=== PATIENT | female | born 1940 | race Caucasian/White ===

== ENCOUNTER 2016-09-07 07:54 | Day surgery (SDC) | payer MEDICARE ==
[~2016-09-07] VITALS: Ht 162.6 cm; Wt 61.2 kg
[~2016-09-07 07:54] MED LIST: ASPIRIN81 MG PO; CENTRUM PO; LEVOTHYROXIN50 MCG PO; LOSARTAN POT50 MG PO; LUTEIN PO; PRAVASTATIN SOD20 MG PO; PROAIR HFA IN; VITAMIN E400 UNIT PO; [UNRECOGNIZED DRUG - OTHER] PO
[2016-09-07 10:58] VITALS: BP 100/53
== END 2016-09-07 11:20 | disposition home or self-care (01) ==
LOC: ENDO 07:54
PROVIDERS: ATTEND Surgery
PROC: 0DBP8ZX Excision of Rectum, Via Natural or Artificial Opening Endoscopic, Diagnostic (ICD-10-PCS; principal; 2016-09-07)
DX: Z12.11 Encounter for screening for malignant neoplasm of colon (principal); D12.8 Benign neoplasm of rectum; E78.5 Hyperlipidemia, unspecified; Z86.73 Personal history of transient ischemic attack (TIA), and cerebral infarction without residual deficits; Z85.6 Personal history of leukemia

== ENCOUNTER 2023-03-11 11:47 | Emergency (ER) | payer MEDICARE ==
[2023-03-11] VITALS (7 sets, daily range): BP systolic 156–186; BP diastolic 73–95
[~2023-03-11] VITALS: Ht 162.6 cm; Wt 62.7 kg
[2023-03-11 12:28] LABS: BASO% 0.1 % (0-3); HEMATOCRIT 36.1 % (37.0-47.0); HEMOGLOBIN 11.6 g/dl (12.0-16.0); IMMATURE GRANULOCYTES 0.2 % (0.0-5.0); LYMPH% 8.6 % (15-41); MEAN CELL VOLUME 101.1 fL CALC (80.0-100.0); MEAN CORPUSCULAR HGB 32.5 pG CALC (26.0-32.0); MEAN CORPUSCULAR HGB CONC 32.1 g/dL CAL (32.0-36.0); MONO% 8.6 % (2-13); NEUT# 12.91 thou/uL (2.00-7.15); NEUT% 82.5 % (42-76); RED BLOOD COUNT 3.57 mill/uL (4.20-5.60); RED CELL DISTRI WIDTH 13.8 % (11.5-15.5)
[2023-03-11 12:52] LABS: ALBUMIN 3.7 g/dL (3.2-5.0); ALKALINE PHOSPHATASE 85 u/l (38-126); ANION GAP 13 (6-22 (CALC)); BILIRUBIN, TOTAL 0.4 mg/dL (0.02-1.3); BUN 27 mg/dL (8-23); BUN/CREATININE RATIO 40 (12-20 (CALC)); CARBON DIOXIDE 25 mmol/l (22-30); CHLORIDE 103 mmol/l (95-108); CREATININE 0.7 mg/dL (0.5-1.0); GFR FOR AFR.AMER. > 60 ML/MIN (>=60 (CALC)); GFR OTHER RACES > 60 ML/MIN (>=60 (CALC)); POTASSIUM 3.9 mmol/l (3.5-5.1); SODIUM 138 mmol/l (137-146)
[2023-03-11 12:53] LABS: SGOT/AST 58 u/l (9-36)
[2023-03-11 13:17] LABS: URINE BILIRUBIN - DIPSTICK Negative (NEGATIVE); URINE BLOOD DIPSTICK Trace-intact (NEGATIVE); URINE GLUCOSE - DIPSTICK Negative (NEGATIVE); URINE KETONE Negative (NEGATIVE); URINE NITRITE - DIPSTICK Negative (Negative); URINE PROTEIN - DIPSTICK 30 mg/dL (NEG-TRACE); URINE SPECIFIC GRAVITY 1.015
[2023-03-11 13:21] LABS: URINE COLOR Yellow; URINE EPITHELIAL CELLS MODERATE EPI/hpf (0-FEW); URINE LEUK ESTERASE Small (NEGATIVE); URINE RBC 0-2 RBC/hpf (0-5)
[2023-03-11 13:22] LABS: URINE BACTERIA FEW hpf
== END 2023-03-11 13:49 | disposition home or self-care (01) ==
LOC: ED 11:47
PROVIDERS: Family Medicine
DX: R56.9 Unspecified convulsions (principal); I10 Essential (primary) hypertension; Z98.890 Other specified postprocedural states; Z86.018 Personal history of other benign neoplasm; Z20.822 Contact with and (suspected) exposure to COVID-19
CPT/HCPCS: J1953

== ENCOUNTER 2023-04-02 13:04 | Emergency (ER) | payer MEDICARE ==
[2023-04-02] VITALS (9 sets, daily range): BP systolic 103–121; BP diastolic 51–72
[~2023-04-02] VITALS: Ht 162.6 cm; Wt 63.0 kg
== END 2023-04-02 17:10 | disposition home or self-care (01) ==
LOC: ED 13:04
PROC: 0HQ0XZZ Repair Scalp Skin, External Approach (ICD-10-PCS; principal; 2023-04-02)
DX: S01.01XA Laceration without foreign body of scalp, initial encounter (principal); I10 Essential (primary) hypertension; W01.0XXA Fall on same level from slipping, tripping and stumbling without subsequent striking against object, initial encounter; Y92.002 Bathroom of unspecified non-institutional (private) residence as the place of occurrence of the external cause; Z98.890 Other specified postprocedural states

== ENCOUNTER 2023-04-18 12:58 | Emergency (ER) | payer MEDICARE ==
[~2023-04-18] VITALS: Ht 162.6 cm; Wt 61.0 kg
[2023-04-18] VITALS (11 sets, daily range): BP systolic 149–184; BP diastolic 77–109
[2023-04-18] MEDS ORDERED: OMEPRAZOLE DR40 MG PO (13:22)
[2023-04-18] MEDS ORDERED: LOVASTATIN20 M1 PO (13:22)
[2023-04-18] MEDS ORDERED: KEPPRA750 M2 PO (13:23)
[2023-04-18] MEDS ORDERED: GABAPENTIN100 MG PO (13:23)
[2023-04-18] MEDS ORDERED: DECADRON4 MG PO ×2 (13:24→16:16)
[2023-04-18 13:27] LABS: BASO% 0.3 % (0-3); EOS% 1.5 % (0-8); HEMATOCRIT 34.8 % (37.0-47.0); HEMOGLOBIN 11.1 g/dl (12.0-16.0); IMMATURE GRANULOCYTES 0.3 % (0.0-5.0); MEAN CELL VOLUME 99.7 fL CALC (80.0-100.0); MEAN CORPUSCULAR HGB 31.8 pG CALC (26.0-32.0); MEAN CORPUSCULAR HGB CONC 31.9 g/dL CAL (32.0-36.0); MONO% 12.9 % (2-13); NEUT# 5.64 thou/uL (2.00-7.15); RED BLOOD COUNT 3.49 mill/uL (4.20-5.60); RED CELL DISTRI WIDTH 14.2 % (11.5-15.5)
[2023-04-18 13:50] LABS: ALBUMIN 3.4 g/dL (3.2-5.0); ALKALINE PHOSPHATASE 102 u/l (38-126); ANION GAP 13 (6-22 (CALC)); BILIRUBIN, TOTAL 0.3 mg/dL (0.02-1.3); BUN 23 mg/dL (8-23); BUN/CREATININE RATIO 34 (12-20 (CALC)); CALCULATED LDLCHOLESTEROL 119 mg/dL (62-129 (CALC)); CARBON DIOXIDE 21 mmol/l (22-30); CHLORIDE 106 mmol/l (95-108); CREATININE 0.7 mg/dL (0.5-1.0); GFR FOR AFR.AMER. > 60 ML/MIN (>=60 (CALC)); GFR OTHER RACES > 60 ML/MIN (>=60 (CALC)); HDL CHOLESTEROL 31 mg/dL (39.0-59.0); POTASSIUM 4.4 mmol/l (3.5-5.1); SGOT/AST 39 u/l (9-36); SODIUM 136 mmol/l (137-146); TOTAL CHOLESTEROL 187 mg/dl (0-199); TOTAL PROTEIN 6.8 g/dL (6.3-8.2); TOTAL TRIGLYCERIDES 181 mg/dl (0-149); VLDL CHOLESTROL 36 mg/dl (0-48 (CALC))
[2023-04-18 14:30] LABS: URINE BILIRUBIN - DIPSTICK Negative (NEGATIVE); URINE BLOOD DIPSTICK Trace-lysed (NEGATIVE); URINE GLUCOSE - DIPSTICK Negative (NEGATIVE); URINE KETONE Negative (NEGATIVE); URINE NITRITE - DIPSTICK Negative (Negative); URINE PH 5.5 (4.5-8.0); URINE PROTEIN - DIPSTICK Negative (NEG-TRACE); URINE SPECIFIC GRAVITY <=1.005; URINE UROBILINOGEN - DIPSTICK 0.2 E.U./dL (0.2)
[2023-04-18 14:31] LABS: URINE COLOR Yellow; URINE LEUK ESTERASE Moderate (NEGATIVE)
[2023-04-18 14:37] LABS: INTERNATIONAL NORMALIZED RATIO 1.2 RATIO (0.7-1.3); PROTHROMBIN TIME 11.4 SECONDS (9.0-12.5)
[2023-04-18 14:50] LABS: URINE BACTERIA FEW hpf; URINE TRANSITIONAL EPI. CELLS FEW hpf
[2023-04-18 14:51] LABS: URINE SQUAMOUS EPITHELIAL CELL FEW EPI/hpf (0-FEW)
== END 2023-04-18 16:42 | disposition home or self-care (01) ==
LOC: ED 12:58
PROVIDERS: Family Medicine
DX: C79.31 Secondary malignant neoplasm of brain (principal); G93.6 Cerebral edema; C70.0 Malignant neoplasm of cerebral meninges; J11.1 Influenza due to unidentified influenza virus with other respiratory manifestations; I10 Essential (primary) hypertension; E78.5 Hyperlipidemia, unspecified; G62.9 Polyneuropathy, unspecified; I69.951 Hemiplegia and hemiparesis following unspecified cerebrovascular disease affecting right dominant side; Z98.890 Other specified postprocedural states; Z92.3 Personal history of irradiation; Z94.81 Bone marrow transplant status; Z85.6 Personal history of leukemia; Z20.822 Contact with and (suspected) exposure to COVID-19
CPT/HCPCS: Q9967

== ENCOUNTER 2023-09-10 18:11 | Emergency (ER) | payer MEDICARE ==
[~2023-09-10] VITALS: Ht 162.6 cm; Wt 60.8 kg
[~2023-09-10 18:11] MED LIST changes: +DECADRON4 MG PO; +GABAPENTIN100 MG PO; +KEPPRA750 M2 PO; +LOVASTATIN20 M1 PO; +OMEPRAZOLE DR40 MG PO
[2023-09-10 18:25] VITALS: BP 164/77
[2023-09-10] MEDS ORDERED: KEFLEX500 MG PO (18:38)
[2023-09-10 18:41] LABS: BASO% 0.4 % (0-3); EOS% 1.3 % (0-8); HEMATOCRIT 38.3 % (37.0-47.0); HEMOGLOBIN 11.8 g/dl (12.0-16.0); IMMATURE GRANULOCYTES 0.1 % (0.0-5.0); LYMPH% 23.9 % (15-41); MEAN CELL VOLUME 105.2 fL CALC (80.0-100.0); MEAN CORPUSCULAR HGB 32.4 pG CALC (26.0-32.0); MEAN CORPUSCULAR HGB CONC 30.8 g/dL CAL (32.0-36.0); MONO% 9.4 % (2-13); NEUT# 6.18 thou/uL (2.00-7.15); NEUT% 64.9 % (42-76); RED BLOOD COUNT 3.64 mill/uL (4.20-5.60); RED CELL DISTRI WIDTH 13.7 % (11.5-15.5)
[2023-09-10 18:53] LABS: CREATININE 0.7 mg/dL (0.5-1.0); INTERNATIONAL NORMALIZED RATIO 1.2 RATIO (0.7-1.3); POTASSIUM 4.1 mmol/l (3.5-5.1); PROTHROMBIN TIME 11.6 SECONDS (9.0-12.5)
[2023-09-10 19:00] VITALS: BP 164/77
== END 2023-09-10 19:45 | disposition home or self-care (01) ==
LOC: ED 18:11
PROVIDERS: Family Medicine
DX: R04.0 Epistaxis (principal); I10 Essential (primary) hypertension; Z86.73 Personal history of transient ischemic attack (TIA), and cerebral infarction without residual deficits; Z86.011 Personal history of benign neoplasm of the brain